=== PATIENT | female | born 1975 | race Caucasian/White ===

== ENCOUNTER 2018-03-19 08:22 | Emergency (ER) | payer MEDICAID ==
[~2018-03-19] VITALS: Ht 154.9 cm; Wt 79.4 kg
--- NOTE | 2018-03-19 08:25 | NUR ---
PT BIB SELF C/O GENERALIZED ITCHING/HIVES, HEADACHE X 4 DAYS. DENIES SOB, PT IS AAOX4, NOT IN RESPIRATORY DISTRESS, V/S STABLE, KEPT RESTED AND COMFORTABLE.
--- NOTE | 2018-03-19 08:37 | NUR ---
SEEN AND EXAMINED BY DR. MORALES.
[2018-03-19] MEDS ORDERED: methylPREDNISolone ACETATE 80 MG/ML VIAL ONE (08:41)
[2018-03-19] MEDS: methylPREDNISolone ACETATE 80 MG/ML VIAL IM ONE (08:50)
--- NOTE | 2018-03-19 08:51 | NUR ---
Patient discharged to home in stable condition. Written and verbal after care instructions given. Patient verbalizes understanding of instruction.
[2018-03-19 08:53] VITALS: BP 117/56
== END 2018-03-19 08:54 | disposition home or self-care (01) ==
LOC: ER 08:26
DX: L50.9 Urticaria, unspecified (principal)
CPT/HCPCS: J1040

== ENCOUNTER 2018-04-02 10:37 | Emergency (ER) | payer MEDICAID ==
[~2018-04-02] VITALS: Ht 157.5 cm; Wt 88.5 kg
[2018-04-02] MEDS ORDERED: FAMOTIDINE/PF INJ 20 MG/2 ML VIAL IV ONE ×2 (11:00→11:08)
[2018-04-02] MEDS ORDERED: methylPREDNISolone SOD SUCC 125 MG/2ML VIAL IV ONE (11:00)
[2018-04-02] MEDS ORDERED: diphenhydrAMINE HCL 50 MG/ML VIAL IV ONE (11:00)
[2018-04-02] MEDS ORDERED: IV NS 0.9% 1,000 ML BAG IV ONE (11:00)
[2018-04-02] MEDS ORDERED: diphenhydrAMINE HCL 50 MG/ML VIAL ONE (11:08)
[2018-04-02] MEDS ORDERED: methylPREDNISolone SOD SUCC 125 MG/2ML VIAL ONE (11:08)
[2018-04-02 11:10] LABS: BASOPHILS # (AUTO) 0.1 /CMM (0.0-0.2); BASOPHILS % (AUTO) 0.8 % (0.0-2.0); HEMATOCRIT 38 % (33-45); HEMOGLOBIN 12.8 g/dL (11.5-14.8); LYMPHOCYTES # (AUTO) 2.7 /CMM (0.8-4.8); LYMPHOCYTES % (AUTO) 24.9 % (20.0-44.0); MEAN CORPUSCULAR HGB CONC 33 g/dl (31.0-36.0); MEAN CORPUSCULAR VOLUME 87 fL (82-100); MONOCYTES # (AUTO) 0.7 /CMM (0.1-1.30); MONOCYTES % (AUTO) 6.6 % (2.0-12.0); NEUTROPHILS # (AUTO) 6.7 /CMM (1.8-8.9); NEUTROPHILS % (AUTO) 62.7 % (43.0-81.0); PLATELET COUNT (AUTO) 283 /CMM (150-450); RED BLOOD CELL COUNT(AUTO) 4.38 MIL/uL (4.0-5.2); WHITE BLOOD COUNT (AUTO) 10.8 K/uL (4.3-11.0)
--- NOTE | 2018-04-02 11:10 | NUR ---
PT BIB C/O GENERALIZED HIVES/ITCHING. SEEN 2 WEEKS AGO. GIVEN PREDNISONE W/ NO RELIEF, PT IS AAOX4, NOT IN RESPIRATORY DISTRESS, V/S STABLE, KEPT RESTED AND COMFORTABLE. SEEN AND EXAMINED BY DR. NEVAREZ.
[2018-04-02 11:18] LABS: CALCIUM, SERUM 8.9 mg/dL (8.5-10.1); CREATININE 0.7 mg/dL (0.6-1.3); POTASSIUM 3.5 mmol/L (3.5-5.1)
--- NOTE | 2018-04-02 12:08 | NUR ---
IV removed. Catheter intact and site benign. Pressure and 4x4 applied to site. No bleeding noted. Patient discharged to home in stable condition. Written and verbal after care instructions given. Patient verbalizes understanding of instruction.
[2018-04-02 12:11] VITALS: BP 106/71
== END 2018-04-02 12:16 | disposition home or self-care (01) ==
LOC: ER 10:45
DX: L50.0 Allergic urticaria (principal)
CPT/HCPCS: 36415; 80048; 85025; 96374; 96375; 99283; A4606; J1200; J2930; J3490; J7030

== ENCOUNTER 2019-10-21 13:15 | Emergency (ER) | payer MEDICAID ==
[~2019-10-21] VITALS: Ht 157.5 cm; Wt 86.2 kg
[2019-10-21 13:31] VITALS: BP 113/69
--- NOTE | 2019-10-21 13:42 | NUR ---
[facility] AT BEDSIDE FOR XRAY.
== END 2019-10-21 15:10 | disposition home or self-care (01) ==
LOC: ER 13:19
DX: S93.492A Sprain of other ligament of left ankle, initial encounter (principal); S93.491A Sprain of other ligament of right ankle, initial encounter; W01.0XXA Fall on same level from slipping, tripping and stumbling without subsequent striking against object, initial encounter; Y93.89 Activity, other specified; Y92.89 Other specified places as the place of occurrence of the external cause; Y99.8 Other external cause status
CPT/HCPCS: 73610-TC